=== PATIENT | male | born 1955 | race Caucasian/White ===

== ENCOUNTER 2017-04-24 08:42 | Day surgery (SDC) | payer OTHER ==
[2017-04-24] MEDS ORDERED: fentaNYL 100 MCG/2 ML INJ IVP ONE (08:45)
[2017-04-24] MEDS ORDERED: NS 500 ML IV ONE (08:45)
[2017-04-24] MEDS ORDERED: BENZOCAINE UNIT DOSE SPRAY HURRICAINE MM ONE (08:45)
[2017-04-24] MEDS ORDERED: MIDAZOLAM 2 MG/2 ML VIAL IVP ONE (08:45)
[2017-04-24] MEDS ORDERED: MIDAZOLAM 2 MG/2 ML VIAL ONE (10:02)
[2017-04-24] MEDS ORDERED: fentaNYL 100 MCG/2 ML INJ ONE (10:02)
--- NOTE | 2017-04-24 10:14 | PDHPUP ---
History & Physical Update H&P update statement: This history and physical update is based on an assessment of the patient which was completed after admission or registration (within 24 hours), but prior to the surgery/procedure. H&P update: H&P reviewed & patient examined, no change in patient's condition since H&P completed
--- NOTE | 2017-04-24 10:15 | PDPROPOC ---
Sedation Plan of Care Sedation Plan of Care: vital signs stable, mental status noted, patient educated of risks, benefits, alternatives, patient can tolerate sedation ASA Classification: ASA 1 Planned drugs: fentanyl, midazolam Mallampati Score: Class 1 Mallampati Reference Image: Patient passed 3-3-2 rule?: Yes
--- NOTE | 2017-04-28 08:29 | ECHO ---
[email or web address] [address] [address] Main: [phone] Fax: Transesophageal Echocardiography Name: CAROLIN GONZALES MR#: [id number] Study Date: 04/24/2017 Study Time: 10:02 AM Date of : 1955 Age: 61 year(s) Height: ( ) Weight: ( ) BSA: Gender: Male Examination: ARCHANA Indication: Eval AO/MV Image Quality: Contrast: Requested by: Jaelyn Calles Heart Rate: Rhythm: BP: / Procedure Staff Credit Control Administrator: Shai Cat Reading Physician: Jaelyn Calles Requesting Provider: Jaelyn Calles ARCHANA Exam Details Patient Consent: Risks, alternatives of procedure explained to patient, informed consent obtained. Patient Fasting: yes Conclusions: Normal global systolic LV function. Normal RV function. An agitated saline study was performed and was negative for intracardiac shunting. Mild mitral valve regurgitation is present. P2 prolapse . The AI is eccentric and is directed towards anterior mitral valve leaflet. The sinus of valsalva measures 4.65 cm Mild to moderate aortic valve regurgitation. Measurements: Chambers Valvular Assessment AV/MV Valvular Assessment TV/PV Normal Normal Normal Name Value Range Name Value Range Name Value Range Additional Measurements: Findings: Left Ventricle: Normal global systolic LV function. Right Ventricle: Patient: CAROLIN GONZALES Study Date: 04/24/2017 Page 1 of 2 10:02 AM Normal RV function. Left Atrium: An agitated saline study was performed and was negative for intracardiac shunting. Left Atrial Appendage: Good color flow doppler in the left atrial appendage. Normal PW-Doppler flow pattern. No thrombus in left appendage. Mitral Valve: There is mild prolapse of the posterior leaflet of the mitral valve. Mild mitral valve regurgitation is present. P2 prolapse . Aortic Valve: The aortic valve is tri-leaflet. The AI is eccentric and is directed towards anterior mitral valve leaflet. The sinus of valsalva measures 4.65 cmMild to moderate aortic valve regurgitation. Tricuspid Valve: The tricuspid valve appears normal. Pulmonic Valve: The pulmonic valve is normal in appearance and function. Dilated sinus of valsalva. Pericardium: No pericardial effusion. l1n (No Signature Object) Patient: CAROLIN GONZALES Study Date: 04/24/2017 Page 2 of 2 10:02 AM [id number]
--- NOTE | 2017-04-28 08:29 | ECHO ---
[email or web address] [address] [address] Main: [phone] Fax: Transesophageal Echocardiography Name: CAROLIN GONZALES MR#: [id number] Study Date: 04/24/2017 Study Time: 10:02 AM Date of : 1955 Age: 61 year(s) Height: ( ) Weight: ( ) BSA: Gender: Male Examination: ARCHANA Indication: Eval AO/MV Image Quality: Contrast: Requested by: Jaelyn Calles Heart Rate: Rhythm: BP: / Procedure Staff Mechanical Integrity Specialist: Shai Cat Reading Physician: Jaelyn Calles Requesting Provider: Jaelyn Calles ARCHANA Exam Details Patient Consent: Risks, alternatives of procedure explained to patient, informed consent obtained. Patient Fasting: yes Conclusions: Normal global systolic LV function. Normal RV function. An agitated saline study was performed and was negative for intracardiac shunting. Mild mitral valve regurgitation is present. P2 prolapse . The AI is eccentric and is directed towards anterior mitral valve leaflet. The sinus of valsalva measures 4.65 cm Mild to moderate aortic valve regurgitation. Measurements: Chambers Valvular Assessment AV/MV Valvular Assessment TV/PV Normal Normal Normal Name Value Range Name Value Range Name Value Range Additional Measurements: Findings: Left Ventricle: Normal global systolic LV function. Right Ventricle: Patient: CAROLIN GONZALES Study Date: 04/24/2017 Page 1 of 2 10:02 AM Normal RV function. Left Atrium: An agitated saline study was performed and was negative for intracardiac shunting. Left Atrial Appendage: Good color flow doppler in the left atrial appendage. Normal PW-Doppler flow pattern. No thrombus in left appendage. Mitral Valve: There is mild prolapse of the posterior leaflet of the mitral valve. Mild mitral valve regurgitation is present. P2 prolapse . Aortic Valve: The aortic valve is tri-leaflet. The AI is eccentric and is directed towards anterior mitral valve leaflet. The sinus of valsalva measures 4.65 cmMild to moderate aortic valve regurgitation. Tricuspid Valve: The tricuspid valve appears normal. Pulmonic Valve: The pulmonic valve is normal in appearance and function. Dilated sinus of valsalva. Pericardium: No pericardial effusion. l1n (No Signature Object) Patient: CAROLIN GONZALES Study Date: 04/24/2017 Page 2 of 2 10:02 AM [id number]
--- NOTE | 2017-04-28 08:29 | ECHO ---
[email or web address] [address] [address] Main: [phone] Fax: Transesophageal Echocardiography Name: CAROLIN GONZALES MR#: [id number] Study Date: 04/24/2017 Study Time: 10:02 AM Date of : 1955 Age: 61 year(s) Height: ( ) Weight: ( ) BSA: Gender: Male Examination: ARCHANA Indication: Eval AO/MV Image Quality: Contrast: Requested by: Jaelyn Calles Heart Rate: Rhythm: BP: / Procedure Staff Starting Sheet Tank Operator: Shai Cat Reading Physician: Jaelyn Calles Requesting Provider: Jaelyn Calles ARCHANA Exam Details Patient Consent: Risks, alternatives of procedure explained to patient, informed consent obtained. Patient Fasting: yes Conclusions: Normal global systolic LV function. Normal RV function. An agitated saline study was performed and was negative for intracardiac shunting. Mild mitral valve regurgitation is present. P2 prolapse . The AI is eccentric and is directed towards anterior mitral valve leaflet. The sinus of valsalva measures 4.65 cm Mild to moderate aortic valve regurgitation. Measurements: Chambers Valvular Assessment AV/MV Valvular Assessment TV/PV Normal Normal Normal Name Value Range Name Value Range Name Value Range Additional Measurements: Findings: Left Ventricle: Normal global systolic LV function. Right Ventricle: Patient: CAROLIN GONZALES Study Date: 04/24/2017 Page 1 of 2 10:02 AM Normal RV function. Left Atrium: An agitated saline study was performed and was negative for intracardiac shunting. Left Atrial Appendage: Good color flow doppler in the left atrial appendage. Normal PW-Doppler flow pattern. No thrombus in left appendage. Mitral Valve: There is mild prolapse of the posterior leaflet of the mitral valve. Mild mitral valve regurgitation is present. P2 prolapse . Aortic Valve: The aortic valve is tri-leaflet. The AI is eccentric and is directed towards anterior mitral valve leaflet. The sinus of valsalva measures 4.65 cmMild to moderate aortic valve regurgitation. Tricuspid Valve: The tricuspid valve appears normal. Pulmonic Valve: The pulmonic valve is normal in appearance and function. Dilated sinus of valsalva. Pericardium: No pericardial effusion. l1n (No Signature Object) Patient: CAROLIN GONZALES Study Date: 04/24/2017 Page 2 of 2 10:02 AM [id number]
== END 2017-04-24 12:05 | disposition home or self-care (01) ==
LOC: FCATH 08:42
PROVIDERS: ATTEND Internal Medicine Cardiovascular Disease
PROC: B245ZZ4 Ultrasonography of Left Heart, Transesophageal (ICD-10-PCS; principal; 2017-04-24)
DX: I08.0 Rheumatic disorders of both mitral and aortic valves (principal); I25.10 Atherosclerotic heart disease of native coronary artery without angina pectoris; R00.2 Palpitations; F32.9 Major depressive disorder, single episode, unspecified; Z79.82 Long term (current) use of aspirin; Z82.49 Family history of ischemic heart disease and other diseases of the circulatory system
CPT/HCPCS: J2250; J3010

== ENCOUNTER → 2017-04-26 | Outpatient (CLI) | payer OTHER ==
[~2017-04-26] MED LIST: IOPAMIDOL (ISOVUE 370) 100 ML BTL IV ONE
== END ==
LOC: FIMAGING 15:40
PROVIDERS: ATTEND Internal Medicine Cardiovascular Disease
DX: I71.2 Thoracic aortic aneurysm, without rupture (principal)
CPT/HCPCS: Q9967